=== PATIENT | female | born 1980 | race Caucasian/White ===

== ENCOUNTER → 2017-09-25 12:27 | Outpatient (CLI) | payer SELFPAY ==
--- NOTE | 2017-09-25 12:39 | RAD_ITS ---
STUDY: X-RAY CHEST REASON FOR EXAM: Female, 36 years old. Intermittent chest pain, tachycardia TECHNIQUE: PA and lateral views of the chest. COMPARISON: None. FINDINGS: The lungs are clear and expanded. There is no demonstrated pleural abnormality. Normal size heart. Normal mediastinum and idania. Normal visualized pulmonary arteries. Normal visualized aortic arch and descending thoracic aorta. Normal visualized thoracic spine. Normal visualized ribs, clavicles, and shoulders. There is no demonstrated abnormality of the visualized soft tissue structures of the upper abdomen. RAD/Chest PA and Lateral IMPRESSION: Normal x-ray examination of the chest. Electronically Signed: Eric Christopher MD at 13:10 EDT , Service support ,
--- NOTE | 2017-09-25 12:57 | STE_ITS ---
Reason For Study: Chest Pain Stress Results Protocol: Stress Echocardiogram Maximum Predicted HR: 186 bpm Target HR: 158 bpm% Maximum Pr edicted HR: 101 % DurationHeart Rate Stage (mm:ss) (bpm) BP BASELINE 67 110/70 ADRIAN PROTOCOL- STAGE 1 3:00 11 7 118/76 BRCUE PROTOCOL- STAGE 2 3:00 14 2 126/80 ADRIAN PROTOCOL- STAGE 3 3:00 16 6 150/84 ADRIAN PROTOCOL- STAGE 4 1:46 18 7 / RECOVERY 100 124/6 0 Stress Duration: 10:46 mm:ss Maximum Stress HR: 187 bpm Baseline Echocardiogram Findings Stress Echo Wall motion Data Resting WMIntermediate WMStress WM Resting Wall Motion Wall Motion Stress No regional wall motion No regional wall motion abnormalities noted. abnormalities noted. Ejection Fraction 55 %. Ejection Fraction 65 %. Stress Results Normal blood pressure response to exercise. Exercise was stopped due to achievement of target heart rate. EKG Data Normal intervals are noted. Baseline ECG demonstrates normal sinus rhythm with a rate of 71 beats per minute. The resting blood pressure was 110/70. The patient exercised according to the regular Adrian protocol for a total duration of 10min 46 sec. The maximum heart rate attained was 187 beats per minute. This was 100% of maximum predicted heart rate. The patient exercised into stage 4 of the Adrian protocol. During stress, there were no ST or T wave changes noted to suggest ischemia. At peak exercise, upsloping ST changes only were noted, which did not meet the criteria for ischemia. No arrhythmias noted. No clinical angina was noted. Interpretation Summary Normal resting LV systolic function. Nonstenotic valves. With stress, the LV size decreased and all segments augmented normally. The LVEF increased from 55% to 65%. Negative for ischemia at 100% of MPHR and at 13.4 METS. Normal stress echo at a high workload. Ordering Physician: TIARA LACEY Referring Physician: TIARA LACEY Performed By: Adilia Hernandez, JOSÉ MIGUELCS, RVT
== END ==
DX: R07.9 Chest pain, unspecified (principal)
CPT/HCPCS: 71046; 93017; 93350